=== PATIENT | female | born 1950 | race Caucasian/White ===

== ENCOUNTER 2016-11-27 06:22 | Day surgery (SDC) | payer OTHER ==
[~2016-11-27] VITALS: Ht 162.6 cm; Wt 61.2 kg
[2016-11-27] MEDS ORDERED: LR 1,000 ML IV SCH (08:38)
[2016-11-27] MEDS ORDERED: MEPERIDINE HCL/PF 25 MG/ML DISP.SYRIN IVP PRN (08:45)
[2016-11-27] MEDS ORDERED: HYDROmorphone 2 MG/ML VIAL IVP PRN ×2 (08:45)
[2016-11-27] MEDS ORDERED: HYDROmorphone 1 MG INJ. 1 MG/ML AMPUL IVP PRN (08:45)
[2016-11-27 10:52] VITALS: BP_SYST 112
== END 2016-11-27 12:35 | disposition home or self-care (01) ==
LOC: SDS 06:22 → SMU 06:23 → SDS 12:35
PROVIDERS: ATTEND Otolaryngology
DX: J34.2 Deviated nasal septum (principal); J32.9 Chronic sinusitis, unspecified; J34.89 Other specified disorders of nose and nasal sinuses; M19.90 Unspecified osteoarthritis, unspecified site
CPT/HCPCS: 30140; 30520; 31255; 31256; 31296; 31297; 88305; 88311; C1726; J7120